=== PATIENT | male | born 1960 | race Caucasian/White ===

== ENCOUNTER 2018-04-03 07:57 | Outpatient (RCR) | payer MEDICAID, SELFPAY ==
--- NOTE | 2018-04-03 15:31 | HP.OTFCE_ITS ---
HP OT Functional Capacity Eval - Task Lift Floor (Occasional 1-33% of Day): 30 lbs Floor (Frequent 34-66% of Day): 15 lbs Floor (Constant 67-100% of Day): negligible Floor PDL: Light Knee (Occasional 1-33% of Day): 30 lbs Knee (Frequent 34-66% of Day): 15 lbs Knee (Constant 67-100% of Day): negligible Knee PDL: Light Waist (Occasional 1-33% of Day): 30 lbs Waist (Frequent 34-66% of Day): 15 lbs Waist (Constant 67-100% of Day): negligible Waist PDL: Light Shoulder (Occasional 1-33% of Day): 25 lbs Shoulder (Frequent 34-66% of Day): 12.5 lbs Shoulder (Constant 67-100% of Day): negligible Shoulder PDL: Light Overhead (Occasional 1-33% of Day): 15 lbs Overhead (Frequent 34-66% of Day): 8 lbs Overhead (Constant 67-100% of Day): negligible Overhead PDL: Sedentary-Light Comments: Due to increased compensations with waist and overhead lifting tasks it would not be reccommended he completes increased lifting tasks. It would be beneficial for Pt. to see pain management doctor at this time. - Work Activity/Posture Bending: Occasional Ability (1-33% of day) Squatting: Occasional Ability (1-33% of day) Kneeling: Occasional Ability (1-33% of day) Reaching out: Frequent Ability (34-66% of day) Reaching up: Frequent Ability (34-66% of day) Sitting: Frequent Ability (34-66% of day) Walking: Frequent Ability (34-66% of day) Standing: Occasional Ability (1-33% of day) - Reference Duration Sedentary Sedentary Light Light Light Medium Medium Medium Heavy Very Heavy Heavy Occasional (0-33% of day) Frequent (34-66% of day) Constant (67-100% of day) 10 # Negligible Negligible 15 # 8 # Negligible 20 # 10# Negli. 35 # 18 # 7 # 50 # 25 # 10 # 75 # 100 # >100 # 38 # 50 # >50 # 15 # 20 # >20 # - Patient Information Height: 15.24 cm Weight:: 230 kg Hand Dominance: R handed - Medical History Medical History Including Restrictions: No medical restrictions given by doctor as per Pt. report. No additional information sent by referring physcian. - Diagnoses Diagnoses: PMHx: OA multiple joints, Gout R big toe, HTN, elbow surgery 2017 arthoscopy. Notes has had RA testing but nothing has come back as positive. Notes orthopedic injuries over the years. - Symptoms Symptoms: Main symptom is pain. Pain thoughout body through back, shoulder, hips , and knees. Notes numbness and tingling in L MF-PF since surgery on elbow. - Pain Pain: Pain 7/10 in back and shoulder. He notes that he has increased pain t/o body. Did not take pain meds prior to coming into session. He is on pain medications. He is on oxydone with acetamin 5-325 mg (generic for percacet) daily. 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 - Behavioral Behavioral: Pt. was a little upset while completing tasks due to discomfort. - ADLS ADLS: Pt. lives in 'h[place] lodge', small cabin in the [facility]. Notes he has not been hunting in 4 years. HE has 2 steps to get into cabin no handrails. Once in cabin it is two stories. Ladder to get upstair but noted has not been able to get upstairs since June. He has clawfoot tube with shower, no grab bars and no seat. No grab bars or DME around toilet. Besides bedroom evertyhing else is on first floor. He is still grocery shopping, cooking, cleaning, and driving. Notes he does a little bit at a time. He has 1x dog he care for as well. Notes he does very little yardwork. - Physical Examination Physical Examination: Pt., jameson Kirby for FCE on this date. He did not take pain medication prior to session. Increased compensations noted t/o session. Pain appears limiting but he is still complete ADls and some IADls e.g. grocery shopping with pacing techniques. He is limited with leisure particpation at this time. Performance places him in sedenary to light work but due to consistent compensations it would not reccommended he complete lifiting tasks of repetitive movements at this time. He may benefi tfrom seeing pain management doctor. ROM: B UE is WFL with visual grimances with movements and BLE WFL with hips to 90 when seated in chair. Strength: Strength: Deltoid: R 4-/5, L 4/5. bicep: R 4-/5, L 4/5. tripod: R 4 -/5, L 4/5. rotator cuff complex: R 4-/5, L 4-/5 increased winces. B LE: Hip flexors: R 4-/5, L 4-/5. quadracep: R 4-/5, L 4-/5. hamstring: R 4-/5, L 4-/5. abductors: R 4-/5, L 4-/5. Adductors: R 4-/5, L 4-/5. plantarflexion: R 4-/5, L 4-/5 Right Process Engineering Manager Strength Average: 38.33 Right Process Engineering Manager Strength Percentile: between 85th and 88th Left Process Engineering Manager Strength Average: 34.00 Left Process Engineering Manager Strength Percentile: above 79th below 82nd Right Lateral Pinch Average: 13.00 Right Lateral Pinch Percentile: below 10th Left Lateral Pinch Average: 10.00 Left Lateral Pinch Percentile: below 10th Right Tripod Pinch Average: 7.33 Right Tripod Pinch Percentile: below 10th Left Tripod Pinch Average: 7.00 Left Tripod Pinch Percentile: below 10th Sensation: Completed monofilament test for results are as follows: R. 2nd: 3.22. 3rd: 3.22. 4th: 2.83. 5th: 283. Thumb: 3.84. L. 2nd: 2.83. 3rd : 2.83. 4th: 4.08. 5th:3.22. thumb: 3.22. Sensation abnormal and Pt. noted numbess and tingling in L hand worse that R. L RF and PF have increased numbness and tingling sesnation. Fine Motor: FMC is intact but decreased. Pt. has previous wrist injury to R wrist resulting in fusion. Completed 9 hole pegboard test R hand 29.75 s ( percentile: about 10th), L hand 25.89 s percentile: above 25th below 50th)). Increased pain symptoms appeared as Pt. was holding breath while compelting task and appeared to having difficulty sustain arm in flexion. He was able to move through ROM with some discomfort prior in session. Balance: Balance is WNL. HE is able to stand on 1x foot with vision as reference for over 5 sec on R leg and L leg. Compensations noted on L leg. - Non Material Handling Activities Bendinx, 10x, standing break, 10x quicker followed by seated break. Completed with good body mechanics. ROM WFL and able to move from standing to bent. Some SOB noted towards end of session. Some grimances noted. Pain 7/10 Squattinx, 10x, seated break some SOB noted, 10 more fast followed by seated break. Completed with fair which progressed to poor body mechanics. Increased forward flexion of trunk with increased throacic flexion causing some decreased spinal alignment. Increased fisting of hands to compensate as well as LE shaking as weakenss noted. As repetitions progressed compensations noted. Pain 8/10. Kneelinx, pain 8/10, declined to do 10 fast as pain 8/10. Seated break post 1st set of 10. Poor body mechanics through increased trunk forward and lateral leaning to move from kneeling to upright position. Increased compensations noted. Increased LE weakness noted and increased SOB. Need for seated break post second set. Reaching out/up: From seated position: Reaching out: 3x, 10x, short break followed by 10x fast. Fair body mechanics. Increased compensations noted. Increased compensations shoulder elevation, trunk extension while in chair, and holding breath. Pain 8/10. Reaching Up: 3x, 10x grimances noted , break, 10x fast, seated break. Grimances noted t/o repetitions. Pain 8/10. Compensations noted t/o completion of overhead reaching tasks of trunk extension, holding breath, and some shaking of muscles to maintain movement. Walkin mins of walking tasks. Some antalgic gait noted. Completed 8.5 laps at designated speed within 15 mins. Each lap 340 feet. Completed total 2890 feet. Standin mins. Kofi was able to complete 15 mins of static standing. Increased pain symptoms toward end of static standing with need fo rseated break prio to leaving Pain 8/10. Sitting: Completed 30-40 mins sitting with weiht shifts as needed. Some discomofrt noted in sitting position. Climbing Stairs: Completed 10 stairs with alternating foot patterns and use 1x handrail. COmpensations for pain noted of holding breath, 2x grimance. Able to complete but appears to be in pain. Pain management would be reccommended at this time. - Dynamic Occasional Lifting Capacity Floor Lift: 30 lbs. Increased throacic flexion decreasing spinal alignment. Compensations for L UE due to elbow surgery and increased weight placement on R UE. Body mechanics fair. Pain 8/10. Increased grimances noted t/o task. Due to increased compensation and decreased spinal alignment it would be reccommend to see further painter interior finish. Knee Lift: 30 lbs. Completed fair body mechanics of increased squatting and forward trunk flexion. Pain 8/10. Waist Lift: 30 lbs. Completed fair body mechanics of increased squatting and forward trunk flexion. Pain 8/10. Shoulder Lift: 25 lbs. Pain 8/10. Increased compensations noted of trunk extension and cervical flexion. He manipualted box R hand only due to increased pain with L elbow. Multiple compensations noted and performance classifies him in light work category. Due to safety concerns it would not be reccommended that he completes that much weight at this time. Overhead Lift: 15 lbs. Poor body mechanics. Increased compensations of trunk extension and cervical flexion. Increased holding of breath, grkimance and use of basically 1x arm of R UE due to favoring L UE. Carryin lbs. Antalgic gait noted. Completed with fair body mechanics. Increased compensations of trunk extension noted. Grimace on occassion t/o task and holding breath at times noted. Comments: Oswestry Disability index (Back) 31/50 indicating 62% of perceieved diasbility.
--- NOTE | 2018-04-03 15:31 | HP.OTFCE.D ---
FCE D/C Summary - Discharge ALTA CARROLL was seen for a one time visit for an FCE on 04/03/18 and is discharged.
--- NOTE | 2018-04-06 09:25 | HP.FCE ---
HP OT Functional Capacity Eval - Task Lift Floor (Occasional 1-33% of Day): 30 lbs Floor (Frequent 34-66% of Day): 15 lbs Floor (Constant 67-100% of Day): negligible Floor PDL: Light Knee (Occasional 1-33% of Day): 30 lbs Knee (Frequent 34-66% of Day): 15 lbs Knee (Constant 67-100% of Day): negligible Knee PDL: Light Waist (Occasional 1-33% of Day): 30 lbs Waist (Frequent 34-66% of Day): 15 lbs Waist (Constant 67-100% of Day): negligible Waist PDL: Light Shoulder (Occasional 1-33% of Day): 25 lbs Shoulder (Frequent 34-66% of Day): 12.5 lbs Shoulder (Constant 67-100% of Day): negligible Shoulder PDL: Light Overhead (Occasional 1-33% of Day): 15 lbs Overhead (Frequent 34-66% of Day): 8 lbs Overhead (Constant 67-100% of Day): negligible Overhead PDL: Sedentary-Light Comments: Due to increased compensations with waist and overhead lifting tasks it would not be recommended he completes increased lifting tasks due to safety concerns. His performance is similar to previous FCE but compensations more severe compared to previous FCE. Pain appears to be reported as worse. It would be beneficial for Pt. to see pain management doctor at this time. He is still able to complete all ADLs and some IADLS. - Work Activity/Posture Bending: Occasional Ability (1-33% of day) Squatting: Occasional Ability (1-33% of day) Kneeling: Occasional Ability (1-33% of day) Reaching out: Frequent Ability (34-66% of day) Reaching up: Frequent Ability (34-66% of day) Sitting: Frequent Ability (34-66% of day) Walking: Frequent Ability (34-66% of day) Standing: Occasional Ability (1-33% of day) - Reference Duration Sedentary Sedentary Light Light Light Medium Medium Medium Heavy Very Heavy Heavy Occasional (0-33% of day) Frequent (34-66% of day) Constant (67-100% of day) 10 # Negligible Negligible 15 # 8 # Negligible 20 # 10# Negli. 35 # 18 # 7 # 50 # 25 # 10 # 75 # 100 # >100 # 38 # 50 # >50 # 15 # 20 # >20 # - Patient Information Height: 15.24 cm Weight:: 230 kg Hand Dominance: R handed - Medical History Medical History Including Restrictions: No medical restrictions given by doctor as per Pt. report. No additional information sent by referring physician. - Diagnoses Diagnoses: PMHx: OA multiple joints, Gout R big toe, HTN, elbow surgery 2017 arthroscopy. Notes has had RA testing, but nothing has come back as positive. Notes orthopedic injuries over the years and seems to have pain perceived in those areas. - Symptoms Symptoms: Main symptom is pain. Pain thoughout body through back, shoulder, hips, and knees. Notes numbness and tingling in L MF-PF since surgery on elbow. Not on pain management program as he was turned away per Pt. report. He reports that he did not take pain meds prior to session. Reports pain at 7/10 priro to start session. Educated to complete all atsks within pain tolerance. If to painful he is to difcontinue task. Pain increased to 8/10 t/o session. - Pain Pain: Pain 7/10 in back and shoulder. He notes that he has increased pain t/o body. Did not take pain meds prior to coming into session. He is on pain medications but reports not taking regularly because make him sick at times. He is on oxycodone acetaminophen 5-325 mg (generic for Percocet) daily. HE has h/o arthritis. He explained he was seeing arthritis specialist but is no longer seeing specialist at this time. Tested for RA but results negative. 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 - Behavioral Behavioral: Pt. was a little upset while completing tasks due to discomfort. - ADLS ADLS: Pt. lives in 'h[place] lodge', small cabin in the [facility]. Notes he has not been hunting in 4 years. HE has 2 steps to get into cabin, no handrails. Once in cabin it is two stories. Ladder to get upstair but noted has not been able to get upstairs since June. He has clawfoot tube with shower, no grab bars and no seat. No grab bars or DME around toilet. Besides bedroom evertyhing else is on first floor. He is still grocery shopping, cooking, cleaning, and driving. Notes he does a little bit at a time. He has 1x dog he care for as well. Notes he does very little yardwork. - Physical Examination Physical Examination: Pt., Kofi, arrived for E on this date. He did not take pain medication prior to session. Increased compensations noted t/o session. Pain appears limiting but he is still able to complete ADls and some IADls e.g. grocery shopping with pacing techniques and canoeing with motorize canoe (no paddling). He is limited with leisure participation as he would like to complete at this time. Performance places him in sedentary to light work but due to consistent compensations it would not recommended or safe he complete lifting tasks of repetitive movements at this time. See below for further performance and description. He appears to may benefit from seeing pain management doctor at this time. ROM: B UE is WFL with visual grimances with movements and BLE WFL with hips to 90 when seated in chair. Pain 7/10 sittign and with movements. Strength: Strength: Deltoid: R 4-/5, L 4/5. bicep: R 4-/5, L 4/5. tripod: R 4-/5, L 4/5. rotator cuff complex: R 4-/5, L 4-/5 increased winces. B LE: Hip flexors: R 4-/5, L 4-/5. quadracep: R 4-/5, L 4-/5. hamstring: R 4-/5, L 4-/5. abductors: R 4-/5, L 4-/5. Adductors: R 4-/5, L 4-/5. plantarflexion: R 4-/5, L 4-/5 Right Architectural Engineering Teacher Strength Average: 38.33 Right Architectural Engineering Teacher Strength Percentile: between 85th and 88th Left Architectural Engineering Teacher Strength Average: 34.00 Left Architectural Engineering Teacher Strength Percentile: above 79th below 82nd Right Lateral Pinch Average: 13.00 Right Lateral Pinch Percentile: below 10th Left Lateral Pinch Average: 10.00 Left Lateral Pinch Percentile: below 10th Right Tripod Pinch Average: 7.33 Right Tripod Pinch Percentile: below 10th Left Tripod Pinch Average: 7.00 Left Tripod Pinch Percentile: below 10th Sensation: Completed monofilament test for results are as follows: R. 2nd: 3.22. 3rd: 3.22. 4th: 2.83. 5th: 283. Thumb: 3.84. L. 2nd: 2.83. 3rd :2.83. 4th: 4.08. 5th:3.22. thumb: 3.22. Sensation abnormal and Pt. noted numbess and tingling in L hand worse that R. L RF and PF have increased numbness and tingling sesnation. Fine Motor: FMC is intact but decreased. Pt. has previous wrist injury to R wrist resulting in fusion. Completed 9 hole pegboard test R hand 29.75 s (percentile: about 10th), L hand 25.89 s (percentile above 25th below 50th). Increased pain symptoms appeared as Pt. was holding breath while completing task and appeared to having difficulty sustain arm in flexion. He was able to move through ROM with some discomfort prior in session. Balance: Balance is WNL. HE is able to stand on 1x foot with vision as reference for over 5 sec on R leg and L leg. Compensations noted on L leg. - Non Material Handling Activities Bendinx, 10x, standing break, 10x quicker followed by seated break. Completed with good body mechanics. ROM WFL and able to move from standing to bent. Some SOB noted towards end of session. Some grimaces noted. Pain 7/10 Squattinx, 10x, seated break some SOB noted, 10 more fast followed by seated break. Completed with fair bidy mechanics which progressed to poor body mechanics. Increased forward flexion of trunk with increased thoracic flexion causing some decreased spinal alignment. Increased fisting of hands to compensate as well as LE shaking as weakness noted t/o LE. As repetitions progressed increased compensations noted. Pain 8/10. Kneelinx, pain 8/10, declined to do 10 fast as pain 8/10. Seated break post 1st set of 10. Poor body mechanics through increased trunk forward and lateral leaning to move from kneeling to upright position. Increased compensations noted. Increased LE weakness noted and increased SOB. Need for seated break post second set. Reaching out/up: From seated position: Reaching out: 3x, 10x, short break followed by 10x fast. Fair body mechanics. Increased compensations noted of trunke xtension while seated, shoulder elevation, and holding breath. Pain 8/10. Reaching Up: 3x, 10x grimances noted , break, 10x fast, seated break. Grimances noted t/o repetitions. Pain 8/10. Compensations noted t/o completion of overhead reaching tasks of trunk extension, holding breath, and some shaking of muscles to maintain movement. Walkin mins of walking tasks. Some antalgic gait noted. Completed 8.5 consistent laps at designated speed within 15 mins. Each lap 340 feet. Completed total 2890 feet. Able to remain standing post walking to prepare for lifting portion of FCE. Standin mins. Kofi was able to complete 15 mins of static standing. Increased pain symptoms toward end of static standing with need fo rseated break prior to leaving Pain 8/10. Sitting: Completed 30-40 mins sitting with weight shifts as needed. Some discomfort noted in sitting position as per Pt. report. Climbing Stairs: Completed 10 stairs with alternating foot patterns and use 1x handrail. Compensations for pain noted of holding breath, 2x grimace. Able to complete but appears to be in pain. Pain management would be recommended at this time. He has 2 steps to enter home. ABle to complete home steps daily. - Dynamic Occasional Lifting Capacity Floor Lift: 30 lbs. Increased thoracic flexion decreasing spinal alignment. Compensations for L UE due to elbow surgery and increased weight placement on R UE. Body mechanics fair. Pain 8/10. Increased grimaces noted t/o task. Due to increased compensation and decreased spinal alignment it would be recommend to see further silk screen painter. Results similar as last FCE but pain is increased. Knee Lift: 30 lbs. Completed fair body mechanics of increased squatting and forward trunk flexion. SPinal maintain fair alignment. Pain 8/10. Performance classifies at light work performance. Waist Lift: 30 lbs. Completed fair body mechanics of increased squatting and forward trunk flexion. Pain 8/10.Performance classifies at light work performance. Due to pain symptoms and increased grimances appears further pain management needed prior to complete previous work. Shoulder Lift: 25 lbs. Pain 8/10. Increased compensations noted of trunk extension and cervical flexion. He manipulated box R hand only due to increased pain with L elbow. Multiple compensations noted, and performance classifies him in light work category. Due to safety concerns it would not be recommended that he completes that much weight at this time. Overhead Lift: 15 lbs. Poor body mechanics. Increased compensations of trunk extension and cervical flexion. Increased holding of breath, grimance and use of basically 1x arm of R UE due to favoring L UE during manipulation. Would not recommned completing as safety concerns. Carryin lbs. Antalgic gait noted. Completed with fair body mechanics. Increased compensations of trunk extension noted. Grimace on occassion t/o task and holding breath at times noted. Comments: Oswestry Disability index (Back) 31/50 indicating 62% of perceived disability. Kofi complete FCE at this clinic last year. Results were similar. On previous FCE he scored between light-medium work performance for floor, knee, and waist tasks and light for shoulder and overhead. Results similar to today's performance but Pt. is rating and appears to be in increased pain. Additionally, compensations noted t/o activities decrease safety as well as body mechanics for tasks. It would be recommended getting further medical testing to determine cause of pain and pain management if pain is as severe as Pt. report.
== END 2018-04-03 19:00 | disposition home or self-care (01) ==
LOC: OT 07:57
PROVIDERS: Family Provider Family Medicine; PCP Family Medicine; Visit Provider Family Medicine
DX: M54.9 Dorsalgia, unspecified (principal)
CPT/HCPCS: 97750

== ENCOUNTER 2024-04-28 15:22 | Emergency (ER) | payer MEDICARE, SELFPAY ==
[2024-04-28 15:24] VITALS: BP 102/48; PULSE 132; RESP 20; TEMP 35.8; O2SAT 93; BMI 31.6
--- NOTE | 2024-04-28 15:50 | RAD_ITS ---
STUDY: XR Shoulder Min 2 Views REASON FOR EXAM: Male, 63 years old. fall TECHNIQUE: XR Shoulder 2 Views LEFT COMPARISON: None. FINDINGS: There is mild degenerative arthrosis of the glenohumeral articulation. There is degenerative arthrosis of the acromioclavicular joint without inferior osseous spur formation. Normal acromion. Normal humeral head and visualized proximal humerus. The soft tissue structures are unremarkable. Normal visualized pulmonary apex. RAD/Shoulder min 2 Views IMPRESSION: There are no acute findings of the shoulder. Electronically Signed: Miguel Tamez MD at 16:19 EDT ,
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
== END 2024-04-28 16:47 | disposition home or self-care (01) ==
PROVIDERS: Emergency Provider Emergency Medicine; PCP Family Medicine; Visit Provider Emergency Medicine
DX: S40.012A Contusion of left shoulder, initial encounter (principal); F41.9 Anxiety disorder, unspecified; I10 Essential (primary) hypertension; Z87.891 Personal history of nicotine dependence; X58.XXXA Exposure to other specified factors, initial encounter; Z79.899 Other long term (current) drug therapy
CPT/HCPCS: 73030; 99282

== ENCOUNTER 2024-09-09 11:02 | Day surgery (SDC) | payer MEDICARE, SELFPAY ==
--- NOTE | 2024-09-03 15:02 | PAT.ANESEVAL ---
Pre-Assessment Diagnosis/Proposed Procedure Planned Operative Procedure(s): LEFT SHOULDER ARTHROSCOPY RTC REPAIR SUBCROMIAL DECOMPRESSION DISTAL CLAVICLE EXCISION AND MINI OPEN BICEPS TENODESIS Anesthesia History Anesthesia History - manager internet: Anesthesia History - manager internet Hx Hospitalization Yes: 07/2024 REACTION TO 09/02/24 12:46 SUPPLEMENT TAKEN AT HOME Any Problems With Anesthesia No 09/02/24 12:46 Cholinesterase deficiency No 09/02/24 12:46 You/Your Family Experience No 09/02/24 12:46 fever (hyperthermia) with Relationship Recent Exposure to Contagious Disease Does patient have nerve No 09/02/24 12:46 stimulator Patient instructed to have device shut off --Does patient have Pacemaker or ICD? When Was Last Pacemaker Check QUESTION #4 FULL TEXT: You/Your Family Experience fever (hyperthermia) with Anesthesia Last Oral Intake Last Oral intake: Last Oral Intake NPO since Meds taken in AM with sips of water? Meds patient instructed to take am of surgery PONV PONV - manager internet: PONV - manager internet Female No 09/02/24 12:46 HX of Motion Sickness No 09/02/24 12:46 HX of N/V After Surgery No 09/02/24 12:46 Non-Smoker Yes 09/02/24 12:46 Duration of Surgery greater Yes 09/02/24 12:46 than 60 minutes Number of Risk Factors 2 09/02/24 12:46 PONV Score Moderate Risk 09/02/24 12:46 Height & Weight Height & Weight: Anesthesia: Height & Weight Height 6 ft 04/28/24 15:24 Respiratory Assessment Respiratory Assessment - manager internet: Respiratory Tract Infection Hx - manager internet Hx Respiratory Tract Infection No 09/02/24 12:46 STOP Sleep Apnea STOP Sleep Apnea - manager internet: STOP Sleep Apnea - manager internet Hx Hypertension Yes: CONTROLLED WITH MEDS 09/02/24 12:46 Hx Sleep Apnea No 09/02/24 12:46 CPAP BIPAP Do you snore loudly (louder No 09/02/24 12:46 than talking or can be heard Do you often feel tired/ No 09/02/24 12:46 fatigued/ sleepy during daytime? Has anyone observed you stop No 09/02/24 12:46 breathing during sleep? STOP Results Negative 09/02/24 12:46 QUESTION #5 FULL TEXT : Do you snore loudly (louder than talking or can be heard through closed doors)? 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 Specify any problems Hx of Preganancy in last 3 N/A 09/02/24 12:46 Months Nurse Filling Out Transfusion DSCHRIBER 09/02/24 12:46 & Questions: Date: 09/02/24 09/02/24 12:46 Time: 12:49 09/02/24 12:46 Patient unable to answer at this time (ie. confused, unrespo /Reproduction History /Reproductive History - manager internet: /Reproductive Hx- manager internet Hx Now No 09/02/24 12:46 Gestational Age (in weeks): EDC: Hx Hx Para Hx Section SAB No 09/02/24 12:46 PFS Medical History (Updated 09/02/24 @ 12:54 by Kendra Sutton) Wears hearing aid Depression Anxiety Alcohol use Gout Arthritis Prostate disease Restless legs Gastric reflux Former smoker History of normal Holter exam Hypertension Home Medications ?Medication ?Instructions ?Recorded ?Last Taken ?Type duloxetine 60 mg capsule,delayed 60 mg PO BID 04/28/24 Unknown History release epinephrine 0.3 mg/0.3 mL 0.3 ml IM UD allergies 04/28/24 Unknown History injection, auto-injector furosemide 20 mg tablet 20 mg PO DAILY 04/28/24 Unknown History lisinopril 20 mg tablet 20 mg PO DAILY 04/28/24 Unknown History meloxicam 15 mg tablet 15 mg PO DAILY 04/28/24 Unknown History omeprazole 20 mg capsule,delayed 20 mg PO DAILY 04/28/24 Unknown History release oxycodone-acetaminophen 5 mg-325 1 tab PO Q6H PRN PRN pain 04/28/24 Unknown History mg tablet tamsulosin 0.4 mg capsule 0.4 mg PO BID 04/28/24 Unknown History allopurinol 100 mg tablet 100 mg PO DAILY 09/02/24 Unknown History amlodipine 5 mg tablet 5 mg PO DAILY 09/02/24 Unknown History cyclobenzaprine 10 mg tablet 10 mg PO TID PRN PRN muscle spasm 09/02/24 Unknown History tadalafil 20 mg tablet 20 mg PO DAILY PRN PRN sexual 09/02/24 Unknown History activity Allergy/AdvReac Type Severity Reaction Status Date / Time bee venom protein (honey Allergy Shortness Verified 09/02/24 12:42 bee) (bee stings) of breath Surgical History (Updated 09/02/24 @ 12:54 by Kendra Sutton) Hx of toe surgery Hx of appendectomy Hx of foot surgery H/O elbow surgery H/O wrist surgery Social History Smoking Status: Former smoker Audit: Pertinent Findings Pertinent Findings EKG Perinent findings: April 14, 2024. Sinus tachycardia at 103 beats per minutes. Minimal ST depression in the anterior lateral leads. Recommendation Anesthesia Recommendation Anesthesia recommendation: OPTIMIZED for anesthesia
[2024-09-09] VITALS (10 sets, daily range): BP systolic 96–129; BP diastolic 74–92; PULSE 100–112; RESP 16–18; TEMP 36.1–36.5; O2SAT 87–94; BMI 31.8
--- NOTE | 2024-09-09 11:56 | PCM.PRE.AN2 ---
ASA Classification* ASA Classification ASA Classification: 3 Assessment & Plan Anesthesia* Anesthesia Assessment Anesthesia Assessment: Discussed sedation and/or anesthesia options, risks, benefits, and alternatives with patient/parents/legal guardian/POA. Questions invited. The patient/parents/legal guardian/POA seems to understand and agrees to proceed with anesthesia plan. Reviewed the physical assessment, medical history, allergy history and patient home medications list prior to surgery/procedure/anesthetic and documented any changes. Performed airway and anesthesia risk assessments. Anesthesia Type Anesthesia Type: General and Block (Patient is consented for interscalene block.) History Source History Obtained from:: Patient and Chart Anesthesia Focused Assessment* Temperature: 97.7 F Pulse Rate: 112 Blood Pressure: 129/90 Respiratory Rate: 16 Pulse Ox: 94 Oxygen Delivery Method: Room Air Airway Assessment Mouth opens: >3 cm Mallampati Score: II Teeth Condition: Chipped/Broken (Patient has a couple chipped teeth.) and Missing (Patient has several missing teeth. Rest of the teeth are tight.) Neck Range of motion (ROM): Limited ROM (Slight decreased extension) Focused Labs Anesthesia Preop lab: CBC WBC 13.5 K/mm3 (4.4-11.0) H 08/13/14 09:08 RBC 4.97 M/mm3 (4.6-6.2) 08/13/14 09:08 Hgb 14.6 g/dl (13.0-16.5) 08/13/14 09:08 Hct 43.6 % (40-54) 08/13/14 09:08 Plt Count 302 K/mm3 (150-450) 08/13/14 09:08 CHEMISTRY Potassium 3.9 mmol/L (3.5-5.1) 08/13/14 09:08 Sodium 138 mmol/L (136-145) 08/13/14 09:08 BUN 20 mg/dL (7-18) H 08/13/14 09:08 Creatinine 1.2 mg/dL (0.8-1.3) 08/13/14 09:08 Glucose 97 mg/dL (70-110) 08/13/14 09:08 COAG Pre-Assessment Diagnosis/Proposed Procedure Planned Operative Procedure(s): LEFT SHOULDER ARTHROSCOPY RTC REPAIR SUBCROMIAL DECOMPRESSION DISTAL CLAVICLE EXCISION AND MINI OPEN BICEPS TENODESIS Anesthesia History Anesthesia History - home health attendant: Anesthesia History - home health attendant Hx Hospitalization Yes: 07/2024 REACTION TO 09/02/24 12:46 SUPPLEMENT TAKEN AT HOME Any Problems With Anesthesia No 09/02/24 12:46 Cholinesterase deficiency No 09/02/24 12:46 You/Your Family Experience No 09/02/24 12:46 fever (hyperthermia) with Relationship Recent Exposure to Contagious No 09/09/24 11:26 Disease Does patient have nerve No 09/02/24 12:46 stimulator Patient instructed to have device shut off --Does patient have Pacemaker No 09/09/24 11:26 or ICD? When Was Last Pacemaker Check QUESTION #4 FULL TEXT: You/Your Family Experience fever (hyperthermia) with Anesthesia Last Oral Intake Last Oral intake: Last Oral Intake NPO since 07:00 09/09/24 11:26 Meds taken in AM with sips of Yes 09/09/24 11:26 water? Meds patient instructed to see mar 09/09/24 11:26 take am of surgery Any additional information?: Yes Meds taken in AM with sips of water?: Yes PONV PONV - home health attendant: PONV - home health attendant Female No 09/02/24 12:46 HX of Motion Sickness No 09/02/24 12:46 HX of N/V After Surgery No 09/02/24 12:46 Non-Smoker Yes 09/02/24 12:46 Duration of Surgery greater Yes 09/02/24 12:46 than 60 minutes Number of Risk Factors 2 09/02/24 12:46 PONV Score Moderate Risk 09/02/24 12:46 Height & Weight Height & Weight: Anesthesia: Height & Weight Height 6 ft 09/09/24 11:26 Weight: 106.594 kg 09/09/24 11:26 Body Mass Index (BMI) 31.8 09/09/24 11:26 Respiratory Assessment Respiratory Assessment - home health attendant: Respiratory Tract Infection Hx - home health attendant Hx Respiratory Tract Infection No 09/02/24 12:46 STOP Sleep Apnea STOP Sleep Apnea - home health attendant: STOP Sleep Apnea - home health attendant Hx Hypertension Yes: CONTROLLED WITH MEDS 09/02/24 12:46 Hx Sleep Apnea No 09/02/24 12:46 CPAP BIPAP Do you snore loudly (louder No 09/02/24 12:46 than talking or can be heard Do you often feel tired/ No 09/02/24 12:46 fatigued/ sleepy during daytime? Has anyone observed you stop No 09/02/24 12:46 breathing during sleep? STOP Results Negative 09/02/24 12:46 QUESTION #5 FULL TEXT : Do you snore loudly (louder than talking or can be heard through closed doors)? 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 Specify any problems Hx of Preganancy in last 3 N/A 09/02/24 12:46 Months Nurse Filling Out Transfusion DSCHRIBER 09/02/24 12:46 & Questions: Date: 09/02/24 09/02/24 12:46 Time: 12:49 09/02/24 12:46 Patient unable to answer at this time (ie. confused, unrespo /Reproduction History /Reproductive History - home health attendant: /Reproductive Hx- home health attendant Hx Now No 09/02/24 12:46 Gestational Age (in weeks): EDC: Hx Hx Para Hx Section SAB No 09/02/24 12:46 Active Medications Active Medications: Current Medications Generic Name Dose Route Start Last Admin Trade Name Freq PRN Reason Stop Dose Admin Cefazolin Sodium 2 gm/ N/A 20 mls @ 400 mls/hr 09/09/24 13:20 IV 09/09/24 13:22 PREOP ONE Sodium Chloride 1,000 mls @ 15 mls/hr 09/09/24 11:15 IV 09/15/24 00:34 .Q48H [facility] Protocol PFSH Medical History Wears hearing aid Depression Anxiety Alcohol use Gout Arthritis Prostate disease Restless legs Gastric reflux Former smoker History of normal Holter exam Hypertension Home Medications ?Medication ?Instructions ?Recorded ?Last Taken ?Type duloxetine 60 mg capsule,delayed 60 mg PO BID 04/28/24 Unknown History release epinephrine 0.3 mg/0.3 mL 0.3 ml IM UD allergies 04/28/24 Unknown History injection, auto-injector furosemide 20 mg tablet 20 mg PO DAILY 04/28/24 Unknown History lisinopril 20 mg tablet 20 mg PO DAILY 04/28/24 09/09/24 History meloxicam 15 mg tablet 15 mg PO DAILY 04/28/24 Unknown History omeprazole 20 mg capsule,delayed 20 mg PO DAILY 04/28/24 Unknown History release oxycodone-acetaminophen 5 mg-325 1 tab PO Q6H PRN PRN pain 04/28/24 09/02/24 History mg tablet tamsulosin 0.4 mg capsule 0.4 mg PO BID 04/28/24 Unknown History allopurinol 100 mg tablet 100 mg PO DAILY 09/02/24 Unknown History amlodipine 5 mg tablet 5 mg PO DAILY 09/02/24 09/09/24 07:00 History cyclobenzaprine 10 mg tablet 10 mg PO TID PRN PRN muscle spasm 09/02/24 Unknown History tadalafil 20 mg tablet 20 mg PO DAILY PRN PRN sexual 09/02/24 Unknown History activity Allergy/AdvReac Type Severity Reaction Status Date / Time bee venom protein (honey Allergy Shortness Verified 09/09/24 11:25 bee) (bee stings) of breath Surgical History Hx of toe surgery Hx of appendectomy Hx of foot surgery H/O elbow surgery H/O wrist surgery Social History Smoking Status: Former smoker Review of Systems (Anesthesia) ROS Narrative System reviewed and no additional complaints, except as documented.
[2024-09-09] MEDS: Cefazolin 2 GM in Syringe IV (13:13)
[2024-09-09] MEDS: Epinephrine (1 mg/ml) 1 MG/ML VIAL (13:14)
[2024-09-09] MEDS: Bupiv/Epi 0.25% 30 ML Vial (15:02)
--- NOTE | 2024-09-09 15:27 | PCM.POST.ANE ---
Anesthesia: Postop Eval I Current Vital Signs Temperature: 97.5 F Pulse Rate: 111 Blood Pressure: 107/79 Respiratory Rate: 16 Pulse Ox: 92 Oxygen Delivery Method: Room Air Assessment Airway patent: Yes Spontaneous unlabored respirations: Yes Mental status: Awake and Calm nausea: No Vomiting: No Anesthesia Complication: No Fluid Hydration Crystalloid volume administer (ml): 800 Total IV fluid infused: 800 Progress Note Anesthesia document: Postop Eval 1 completed: Yes
--- NOTE | 2024-09-09 15:28 | OP.PCM_ITS ---
Operative Report (Standard) Operative Information Date of Procedure: 09/09/24 Pre-Operative Diagnosis: 1. Left shoulder rotator cuff tear 2. Left shoulder subacromial impingement syndrome 3. Left shoulder long head of biceps tendinosis 4. Left shoulder acromioclavicular joint osteoarthritis Post-Operative Diagnosis: 1. Left shoulder rotator cuff tear 2. Left shoulder subacromial impingement syndrome 3. Left shoulder long head of biceps tendinosis 4. Left shoulder acromioclavicular joint osteoarthritis Surgery/Procedure Performed: 1. Left shoulder arthroscopic rotator cuff repair 2. Left shoulder arthroscopic subacromial decompression 3. Left shoulder arthroscopic distal clavicle excision 4. Left shoulder mini open subpectoral biceps tenodesis lockstitch pocket setter: Yes Utility Bill Collection Clerk: Agueda Keating Tasks completed by [employer] assistant manager: Opening & closing, Dissecting tissue, Implanting device and Retracting Additional assistant credit manager?: No Type of Anesthesia: General/Regional RN Documented Start/Stop Times: Operation Date: 09/09/24 13:20 Case Time Into Pre-Op 09/09/24 11:11 Out of Pre-Op 09/09/24 13:13 Into Room 09/09/24 13:14 Anesthesia Start 09/09/24 13:50 Procedure Start 09/09/24 13:50 Procedure End 09/09/24 15:17 Procedure Start Time: 13:50 Procedure Stop Time: 15:17 Select all DRAINS/GRAFTS/IMPLANTS that apply: Implanted device Implanted device details: Arthrex 4.75 mm bio composite self punching swivel lock anchor x 2, Arthrex fiber tack RC anchor x 1, Arthrex metallic biceps button Estimated Blood Loss: 10 cc Specimen collected: No Description of surgery: Patient was greeted in the same-day surgery holding area the day of surgery. He was identified by name, medical record number, and date of . The operative extremity was marked. All questions were answered to the patient's satisfaction. Interscalene block was then administered by anesthesia. At time of his procedure, patient was brought to the operative suite and positioned supine on a standard operating table. General anesthesia was induced and LMA placed. Patient was then positioned in a lateral decubitus position with the left side up. An axillary roll was placed. All bony prominences were well-padded. We prepped and draped the left upper extremity in a normal, sterile orthopedic fashion. We performed a timeout confirming the side, site, and operation to be performed. No concerns were voiced and we elected to proceed with surgery. 2 g Ancef was ministered IV prior to incision by anesthesia staff. Left upper extremity was placed in arthroscopic traction with 15 pounds of traction force applied to the left arm throughout the arthroscopic portion of the case approximately 1 hour. I then established a standard posterior portal 2 fingerbreadths inferior medial to the posterior lateral border of the scapular spine. Blunt tipped trocar was used to puncture the glenohumeral joint and arthroscopic cannula introduced. The joint was filled with normal saline with epinephrine. Arthroscope was then introduced. Diagnostic arthroscopy was commenced. Anterior interval portal was then established in standard fashion. Biceps tendinosis was noted with partial tearing. Upper third subscapularis tearing was noted. Anterior cable insertion of the supraspinatus appeared to have a full-thickness tear. The articular side of the supraspinatus was then debrided the arthroscopic shaver. I debrided the subscapularis tear as well. I debrided the footprint of the subscapularis. Then placed a rigid cannula through the anterior portal. A fiber link suture was then placed through the anterior third of the subscapularis tendon with a scorpion suture passer. Suture was passed through the eyelet of a self punching swivel lock anchor was then placed at the superior margin of the lesser tuberosity. Suture was tensioned appropriately and there was excellent reapproximation of [place] subscapularis tension. Suture was cut flush with the anchor. I then performed a biceps tenotomy at the biceps labral junction with the arthroscopic cautery. The tendon was allowed to retract into the groove. Degenerative labral fraying was then debrided. Glenohumeral cartilage appeared pristine. No loose bodies identified. I then turned my attention to the subacromial space. Blunt tipped trocar was used to introduce the cannula into the subacromial space. Lateral portal was established and flexible cannula placed. Extensive bursitis was noted and debrided with the arthroscopic shaver. Full-thickness tearing was noted at the anterior cable of the supraspinatus. The undersurface of the acromion was skeletonized with cautery and a prominent downsloping spur was noted. This was resected to a type I acromion with the arthroscopic bur. I then proceeded with double row fixation of the small crescent tear of the anterior portion of the supraspinatus. A fiber tack anchor was placed centrally at the articular margin. I used a fiber link suture to first shuttle the knotless mechanism repair suture and a fiber tape through the anterior portion of the tear approximately 1 cm from the tear margin with a scorpion suture passer. This was repeated on the posterior margin passing the shuttling sutures and the other fiber link suture from the fiber tack anchor. Fiber tape was then passed through the eyelet of a swivel lock anchor and our lateral row anchor was placed along the lateral margin the greater tuberosity in standard fashion. I then passed the passing suture through the knotless mechanism achieving a medial [place] with good compression at the medial portion of the footprint. There were no identifiable dogears. There was excellent reapproximation of [place] cuff tissue to its footprint. Sutures were cut flush. I then turned my attention to the AC joint. The anterior and inferior portion of the joint capsule were released with arthroscopic cautery. A millimeters of distal clavicle were then resected with the arthroscopic bur preserving the superior and posterior portion of the joint capsule. The subacromial space was then thoroughly lavaged. Arthroscopic instruments were removed. Portal sites were closed with interrupted [id number] 3-0 nylon suture. The arm was taken out of traction. A 2 cm oblique incision was then made along the inferior border the pectoralis major and the upper third of the humerus. Field block was administered with 10 cc 0.25% bupivacaine with epinephrine. Blunt dissection was carried down to level the fascia. The fascia was opened inferior to the pectoralis major. Short head biceps tendon was retracted medially and the pectoralis major retracted laterally. The long head biceps tendon was then retrieved out of the wound. Intertubercular portion of the tendon was significantly inflamed and partial tearing was noted. A fiber loop suture was used to perform a whipstitch near the musculotendinous junction. The intercalary portion of the tendon was then amputated. I then elevated periosteum from the humerus in the subpectoral region. I drilled through the near cortex only for an onlay tenodesis. Sutures were passed alternating length through a biceps button. Button was then placed through our drill hole and flipped in the intramedullary canal of the humerus. Sutures were tensioned and tied. Wound was copiously irrigated with normal saline solution. Dermis was reapproximated with buried 3-0 Vicryl suture. Skin was finally reapproximated with a subcuticular 4-0 Monocryl and Dermabond. Bulky sterile compression dressing was applied. Patient was placed in an UltraSling. He was repositioned supine, awakened from anesthesia and safely extubated in the operative suite. He was transferred to his gurney and subsequently to PACU in stable condition. He tolerated the procedure well without apparent complication. Need for skilled assistant credit manager: Agueda Keating PA-C was critical to the outcome of the case. During the course of the procedure the physician assistant credit manager played a vital role. Her intimate knowledge of my steps in the procedure aided in safe and expedient completion of the procedure. The PA played a vital role in positioning particularly in obtaining the appropriate positioning. The PA was also vital in the retraction of soft tissues during the exposure and protecting vital structures. The PA was also vital and obtaining tendon reduction and assisting with hardware placement. She also played a vital role in closure and sling application with my direct supervision. Postoperative plan: Discharge home after meeting same-day surgery criteria Oxycodone prescription provided. Tylenol and ibuprofen encouraged. Ice to the left shoulder Aspirin 81 mg twice daily for DVT prophylaxis beginning postoperative day number 1 x 14 days Physical therapy start in 2 weeks Follow-up appointment in 2 weeks at our office for suture removal and wound check Surgical Findings: Upper third subscapularis tear. Anterior cable full-thickness tear of supraspinatus. Downsloping acromial spur. AC joint arthritis. Partial biceps tearing and tendinosis. Complications Complications: No Admit VTE Documentation VTE Present on Admission: No VTE Mechan Device Prophylaxis: SCD's VTE Pharm Prophylaxis ordered?: Yes
--- NOTE | 2024-09-09 15:29 | POSTOPAN2_ITS ---
Anesthesia Postop Eval I Sum Postop Eval Completion status Anesthesia document: Postop Eval 1 completed: Yes Anesthesia Postop Eval I Summary Anesthesia Postop Eval I Summary: Anesthesia Postop Eval I: Assessment Summary Airway patent Yes 09/09/24 15:29 ROUTING EQUIPMENT TENDER.MDOT Spontaneous unlabored Yes 09/09/24 15:29 ROUTING EQUIPMENT TENDER.MDOT respirations Mental status Awake,Calm 09/09/24 15:29 ROUTING EQUIPMENT TENDER.MDOT nausea No 09/09/24 15:29 ROUTING EQUIPMENT TENDER.MDOT Vomiting No 09/09/24 15:29 ROUTING EQUIPMENT TENDER.MDOT Anesthesia Postop Eval I: Fluid Summary Crystalloid volume administer 800 09/09/24 15:29 ROUTING EQUIPMENT TENDER.MDOT (ml) Colloids volume administered ( ml) Blood Product volume administered (ml) Total IV fluid infused 800 09/09/24 15:29 ROUTING EQUIPMENT TENDER.MDOT Anesthesia Postop Eval I: Summary Notes Anesthesia Complication No 09/09/24 15:29 ROUTING EQUIPMENT TENDER.MDOT Anesthesia Complication Comment: Post-operative progress note Anesthesia: Postop Eval II Evaluation Mental status: Awake and Calm Pain Level: 0 nausea: No Vomiting: No Complications Anesthesia Complication: No
--- NOTE | 2024-09-09 15:29 | PCM.POSTANE2 ---
Anesthesia Postop Eval I Sum Postop Eval Completion status Anesthesia document: Postop Eval 1 completed: Yes Anesthesia Postop Eval I Summary Anesthesia Postop Eval I Summary: Anesthesia Postop Eval I: Assessment Summary Airway patent Yes 09/09/24 15:29 SHIP MATE.MDOT Spontaneous unlabored Yes 09/09/24 15:29 SHIP MATE.MDOT respirations Mental status Awake,Calm 09/09/24 15:29 SHIP MATE.MDOT nausea No 09/09/24 15:29 SHIP MATE.MDOT Vomiting No 09/09/24 15:29 SHIP MATE.MDOT Anesthesia Postop Eval I: Fluid Summary Crystalloid volume administer 800 09/09/24 15:29 SHIP MATE.MDOT (ml) Colloids volume administered ( ml) Blood Product volume administered (ml) Total IV fluid infused 800 09/09/24 15:29 SHIP MATE.MDOT Anesthesia Postop Eval I: Summary Notes Anesthesia Complication No 09/09/24 15:29 SHIP MATE.MDOT Anesthesia Complication Comment: Post-operative progress note Anesthesia: Postop Eval II Evaluation Mental status: Awake and Calm Pain Level: 0 nausea: No Vomiting: No Complications Anesthesia Complication: No
== END 2024-09-09 16:23 | disposition home or self-care (01) ==
LOC: SDC 11:07 → AC 11:07
PROVIDERS: PCP Family Medicine; Referring Provider Student in an Organized Health Care Education/Training Program; Visit Provider Student in an Organized Health Care Education/Training Program
PROC: (CPT 29827; principal; 2024-09-09 13:00)
DX: S46.012A Strain of muscle(s) and tendon(s) of the rotator cuff of left shoulder, initial encounter (principal); M19.012 Primary osteoarthritis, left shoulder; M75.42 Impingement syndrome of left shoulder; Y08.89XA Assault by other specified means, initial encounter; G89.29 Other chronic pain; I10 Essential (primary) hypertension; M10.9 Gout, unspecified; K21.9 Gastro-esophageal reflux disease without esophagitis; F32.A Depression, unspecified; F41.9 Anxiety disorder, unspecified; F17.210 Nicotine dependence, cigarettes, uncomplicated; Z79.899 Other long term (current) drug therapy
CPT/HCPCS: 29827; 29824; 29826; 23430; 01630; 64415; J2405

== ENCOUNTER 2024-12-12 06:57 | Day surgery (SDC) | payer MEDICARE, SELFPAY ==
[2024-11-29 13:28] LABS: Absolute Lymphocyte Count 1.76 X10^3/uL (0.83-4.51); Absolute Neutrophil Count 4.2 X10^3/uL (2.0-7.7); Basophil# 0.11 X10^3/uL; Basophil% 1.6 % (0-1); Eosinophil# 0.11 X10^3/uL; Eosinophils% 1.6 % (0-5); Hematocrit 41.9 % (40-54); Hemoglobin 14.3 g/dL (13.0-16.5); Lymphocyte # 1.76 X10^3/ul (0.83-4.51); Lymphocyte % 25.9 % (19-41); Mean Corp Hgb Conc 34.1 g/dL (32-36); Mean Corpuscular Hgb 29.1 pg (27.0-32.0); Mean Corpuscular Volume 85.2 fL (80-94); Mean Platelet Vol. 9.5 fl (6.2-12.0); Monocyte# 0.55 X10^3/uL; Monocyte% 8.1 % (0-10); NRBC Flagged by Analyzer 0 % (0-5); Neutrophil # 4.24 X10^3/uL (2.7-7.7); Neutrophil % 62.5 % (47-70); Platelet Count 284 K/mm3 (150-450); RBC Distribution Width CV 13.6 % (11.6-14.6); RBC Distribution Width SD 42.5 fl (35.1-43.9); Red Blood Count 4.92 M/mm3 (4.6-6.2); White Blood Count 6.8 K/mm3 (4.4-11.0)
[2024-11-29 14:22] LABS: Anion Gap 12 (5-15); BUN 14 mg/dL (4-19); BUN/Creat Ratio 14.7 RATIO (10-20); Calcium,Total 9.3 mg/dL (7.6-11.0); Carbon Dioxide 22.6 mmol/L (21.0-32.0); Chloride 100 mmol/L (98-108); Creatinine, Serum 0.94 mg/dL (0.70-1.20); EST Glomerular Filtration Rate 92 (>60); Glucose 142 mg/dL (70-99); Potassium 3.9 mmol/L (3.3-5.1); Sodium Level 134 mmol/L (133-145)
--- NOTE | 2024-12-02 15:10 | PAT.ANE_ITS ---
Pre-Assessment Diagnosis/Proposed Procedure Planned Operative Procedure(s): Right shoulder arthroscopy with rotator cuff repair, subacromial decompression, distal clavicle excision and mini open biceps tenodesis. 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 When Was Last Pacemaker Check QUESTION #4 FULL TEXT: You/Your Family Experience fever (hyperthermia) with Anesthesia Last Oral Intake Last Oral intake: Last Oral Intake NPO since Meds taken in AM with sips of water? Meds patient instructed to take am of surgery PONV PONV - calculator operator: PONV - calculator operator Female No 12/02/24 08:25 HX of Motion Sickness No 12/02/24 08:25 HX of N/V After Surgery No 12/02/24 08:25 Non-Smoker Yes 12/02/24 08:25 Duration of Surgery greater Yes 12/02/24 08:25 than 60 minutes Number of Risk Factors 2 12/02/24 08:25 PONV Score Moderate Risk 12/02/24 08:25 Height & Weight Height & Weight: Anesthesia: Height & Weight Height 6 ft 09/09/24 11:26 Respiratory Assessment Respiratory Assessment - calculator operator: Respiratory Tract Infection Hx - calculator operator Hx Respiratory Tract Infection No 12/02/24 08:25 STOP Sleep Apnea STOP Sleep Apnea - calculator operator: STOP Sleep Apnea - calculator operator Hx Hypertension Yes: CONTROLLED WITH MEDS 12/02/24 08:25 Hx Sleep Apnea No 12/02/24 08:25 CPAP BIPAP Do you snore loudly (louder Yes 12/02/24 08:25 than talking or can be heard Do you often feel tired/ No 12/02/24 08:25 fatigued/ sleepy during daytime? Has anyone observed you stop No 12/02/24 08:25 breathing during sleep? STOP Results Positive 12/02/24 08:25 QUESTION #5 FULL TEXT : Do you snore loudly (louder than talking or can be heard through closed doors)? 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 Specify any problems Hx of Preganancy in last 3 N/A 12/02/24 08:25 Months Nurse Filling Out Transfusion DSCHRIBER 12/02/24 08:25 & Questions: Date: 12/02/24 12/02/24 08:25 Time: 08:27 12/02/24 08:25 Patient unable to answer at this time (ie. confused, unrespo /Reproduction History /Reproductive History - calculator operator: /Reproductive Hx- calculator operator Hx Now No 12/02/24 08:25 Gestational Age (in weeks): EDC: Hx Hx Para Hx Section SAB No 12/02/24 08:25 PFS Medical History (Updated 12/02/24 @ 08:35 by Kendra Sutton) Wears hearing aid Depression Anxiety Alcohol use Gout Arthritis Prostate disease Restless legs Gastric reflux Former smoker History of normal Holter exam Hypertension Home Medications ?Medication ?Instructions ?Recorded ?Last Taken ?Type duloxetine 60 mg capsule,delayed 60 mg PO BID 04/28/24 Unknown History release epinephrine 0.3 mg/0.3 mL 0.3 ml IM UD allergies 04/28 Unknown History injection, auto-injector furosemide 20 mg tablet 20 mg PO DAILY 04/28/24 Unkn own History lisinopril 20 mg tablet 20 mg PO DAILY 04/28/2408/13 History meloxicam 15 mg tablet 15 mg PO DAILY 04/28/24 Unkn own History omeprazole 20 mg capsule,delayed 20 mg PO DAILY Unknown History release oxycodone-acetaminophen 5 mg-325 1 tab PO Q6H PRN PRN pain 04/28/24 09/02/24 History mg tablet tamsulosin 0.4 mg capsule 0.8 mg PO DAILY 04/28/24 Unk nown History allopurinol 100 mg tablet 100 mg PO DAILY 09/02/24 Unk nown History amlodipine 5 mg tablet 5 mg PO DAILY 09/02/2409/09 07:00 History cyclobenzaprine 10 mg tablet 10 mg PO TID PRN PRN musc le spasm 09/02/24 Unknown History tadalafil 20 mg tablet 20 mg PO DAILY PRN PRN sexua l 09/02/24 Unknown History activity Allergy/AdvReac Type Severity Reaction Status Date / Time bee venom protein (honey Allergy Shortness Verified 12/02/24 08:21 bee) (bee stings) of breath Surgical History (Updated 12/02/24 @ 08:35 by Kendra Sutton) History of shoulder surgery Hx of toe surgery Hx of appendectomy Hx of foot surgery H/O elbow surgery H/O wrist surgery Social History Smoking Status: Former smoker Audit: Pertinent Findings Pertinent Findings EKG Perinent findings: July 28, 2024. Sinus tachycardia at 114 bpm. Abnormal R wave progression, early transition. Compared to April 24, 2024, heart rate has decreased by 19 bpm. Recommendation Anesthesia Recommendation Anesthesia recommendation: OPTIMIZED for anesthesia
[2024-12-12] VITALS (11 sets, daily range): BP systolic 90–133; BP diastolic 62–97; PULSE 84–108; RESP 16–20; TEMP 36.1–36.5; O2SAT 87–96; BMI 33.7
[2024-12-12] MEDS: 0.9% Normal Saline (1000mL) 1,000 ML 15 ML IV (07:42)
--- NOTE | 2024-12-12 07:58 | PRE.ANES_ITS ---
ASA Classification* ASA Classification ASA Classification: 2 Assessment & Plan Anesthesia* Anesthesia Assessment Anesthesia Assessment: Discussed sedation and/or anesthesia options, risks, benefits, and alternatives with patient/parents/legal guardian/POA. Questions invited. The patient/parents/legal guardian/POA seems to understand and agrees to proceed with anesthesia plan. Reviewed the physical assessment, medical history, allergy history and patient home medications list prior to surgery/procedure/anesthetic and documented any changes. Performed airway and anesthesia risk assessments. Anesthesia Type Anesthesia Type: General and Block (Interscalene) History Source History Obtained from:: Patient and Chart Anesthesia Focused Assessment* Temperature: 97.7 F Pulse Rate: 108 Blood Pressure: 133/97 Respiratory Rate: 18 Pulse Ox: 96 Oxygen Delivery Method: Room Air Airway Assessment Mouth opens: >3 cm Mallampati Score: II Teeth Condition: Chipped/Broken Neck Range of motion (ROM): Full ROM Comment: Multiple teeth missing or chipped Focused Labs Anesthesia Preop lab: CBC WBC 6.8 K/mm3 (4.4-11.0) 11/29/24 13:14 11/29/24 RBC 4.92 M/mm3 (4.6-6.2) 11/29/24 13:14 11/29/24 Hgb 14.3 g/dL (13.0-16.5) 11/29/24 13:14 11/29/24 Hct 41.9 % (40-54) 11/29/24 13:14 11/29/24 Plt Count 284 K/mm3 (150-450) 11/29/24 13:14 11/29/24 CHEMISTRY Potassium 3.9 mmol/L (3.3-5.1) 11/29/24 13:14 11/29/24 Sodium 134 mmol/L (133-145) 11/29/24 13:14 11/29/24 BUN 14 mg/dL (4-19) 11/29/24 13:14 11/29/24 Creatinine 0.94 mg/dL (0.70-1.20) 11/29/24 13:14 11/29/24 Glucose 142 mg/dL (70-99) H 11/29/24 13:14 11/29/24 COAG Pre-Assessment Diagnosis/Proposed Procedure Planned Operative Procedure(s): Right shoulder arthroscopy with rotator cuff repair, subacromial decompression, distal clavicle excision and mini open biceps tenodesis. 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 When Was Last Pacemaker Check QUESTION #4 FULL TEXT: You/Your Family Experience fever (hyperthermia) with Anesthesia Last Oral Intake Last Oral intake: Last Oral Intake NPO since 05:45 12/12/24 07:30 Meds taken in AM with sips of Yes 12/12/24 07:30 water? 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 Female No 12/02/24 08:25 HX of Motion Sickness No 12/02/24 08:25 HX of N/V After Surgery No 12/02/24 08:25 Non-Smoker Yes 12/02/24 08:25 Duration of Surgery greater Yes 12/02/24 08:25 than 60 minutes Number of Risk Factors 2 12/02/24 08:25 PONV Score Moderate Risk 12/02/24 08:25 Height & Weight Height & Weight: Anesthesia: Height & Weight Height 6 ft 12/12/24 07:30 Weight: 113 kg 12/12/24 07:30 Body Mass Index (BMI) 33.7 12/12/24 07:30 Respiratory Assessment Respiratory Assessment - fiber drier operator: Respiratory Tract Infection Hx - fiber drier operator Hx Respiratory Tract Infection No 12/02/24 08:25 STOP Sleep Apnea STOP Sleep Apnea - fiber drier operator: STOP Sleep Apnea - fiber drier operator Hx Hypertension Yes: CONTROLLED WITH MEDS 12/02/24 08:25 Hx Sleep Apnea No 12/02/24 08:25 CPAP BIPAP Do you snore loudly (louder Yes 12/02/24 08:25 than talking or can be heard Do you often feel tired/ No 12/02/24 08:25 fatigued/ sleepy during daytime? Has anyone observed you stop No 12/02/24 08:25 breathing during sleep? STOP Results Positive 12/02/24 08:25 QUESTION #5 FULL TEXT : Do you snore loudly (louder than talking or can be heard through closed doors)? 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 Specify any problems Hx of Preganancy in last 3 N/A 12/02/24 08:25 Months Nurse Filling Out Transfusion DSCHRIBER 12/02/24 08:25 & Questions: Date: 12/02/24 12/02/24 08:25 Time: 08:27 12/02/24 08:25 Patient unable to answer at this time (ie. confused, unrespo /Reproduction History /Reproductive History - fiber drier operator: /Reproductive Hx- fiber drier operator Hx Now No 12/02/24 08:25 Gestational Age (in weeks): EDC: Hx Hx Para Hx Section SAB No 12/02/24 08:25 Active Medications Active Medications: Current Medications Generic Name Dose Route Start Last Admin Trade Name Freq PRN Reason Stop Dose Admin Cefazolin Sodium 2 gm/ N/A 20 mls @ 400 mls/hr 12/12/24 09:20 IV 12/12/24 09:22 X1 ONE Sodium Chloride 1,000 mls @ 15 mls/hr 12/12/24 07:15 12/12/24 07:42 IV 15 mls/hr .Q48H LUKAS Administration PFSH Medical History Wears hearing aid Depression Anxiety Alcohol use Gout Arthritis Prostate disease Restless legs Gastric reflux Former smoker History of normal Holter exam Hypertension Home Medications ?Medication ?Instructions ?Recorded ?Last Taken ?Type duloxetine 60 mg capsule,delayed 60 mg PO BID 04/28/24 12/12/24 05:45 History release epinephrine 0.3 mg/0.3 mL 0.3 ml IM UD allergies 04/28 Unknown History injection, auto-injector furosemide 20 mg tablet 20 mg PO DAILY 04/28/24 Unkn own History lisinopril 20 mg tablet 20 mg PO DAILY 04/28/2408/13 History meloxicam 15 mg tablet 15 mg PO DAILY 04/28/24 Unkn own History omeprazole 20 mg capsule,delayed 20 mg PO DAILY 12/12/24 05:45 History release oxycodone-acetaminophen 5 mg-325 1 tab PO Q6H PRN PRN pain 04/28/24 09/02/24 History mg tablet tamsulosin 0.4 mg capsule 0.8 mg PO DAILY 04/28/2412/03 05:45 History allopurinol 100 mg tablet 100 mg PO DAILY 09/02/24 Unk nown History amlodipine 5 mg tablet 5 mg PO DAILY 09/02/2412/12 05:45 History cyclobenzaprine 10 mg tablet 10 mg PO TID PRN PRN musc le spasm 09/02/24 Unknown History tadalafil 20 mg tablet 20 mg PO DAILY PRN PRN sexua l 09/02/24 Unknown History activity Allergy/AdvReac Type Severity Reaction Status Date / Time bee venom protein (honey Allergy Shortness Verified 12/12/24 07:34 bee) (bee stings) of breath Surgical History History of shoulder surgery Hx of toe surgery Hx of appendectomy Hx of foot surgery H/O elbow surgery H/O wrist surgery Social History Smoking Status: Former smoker Review of Systems (Anesthesia) ROS Narrative System reviewed and no additional complaints, except as documented.
[2024-12-12] MEDS: Cefazolin 2 GM in Syringe IV (09:35)
[2024-12-12] MEDS: Epinephrine (1 mg/ml) 1 MG/ML VIAL (10:16)
[2024-12-12] MEDS: Bupiv/Epi 0.25% 30 ML Vial (10:55)
--- NOTE | 2024-12-12 11:43 | PCM.POST.ANE ---
Anesthesia: Postop Eval I Current Vital Signs Temperature: 97 F Pulse Rate: 98 Blood Pressure: 90/62 Respiratory Rate: 20 Pulse Ox: 95 Oxygen Delivery Method: Room Air Assessment Airway patent: Yes Spontaneous unlabored respirations: Yes Mental status: Awake nausea: No Vomiting: No Anesthesia Complication: No Fluid Hydration Crystalloid volume administer (ml): 1,750 Total IV fluid infused: 1,750 Progress Note Anesthesia document: Postop Eval 1 completed: Yes
--- NOTE | 2024-12-12 13:56 | POSTOPAN2_ITS ---
Anesthesia Postop Eval I Sum Postop Eval Completion status Anesthesia document: Postop Eval 1 completed: Yes Anesthesia Postop Eval I Summary Anesthesia Postop Eval I Summary: Anesthesia Postop Eval I: Assessment Summary Airway patent Yes 12/12/24 11:44 RIP MACHINE OPERATOR.[email or web address] Spontaneous unlabored Yes 12/12/24 11:44 RIP MACHINE OPERATOR.LMIL respirations Mental status Awake 12/12/24 11:44 RIP MACHINE OPERATOR.LMIL nausea No 12/12/24 11:44 RIP MACHINE OPERATOR.LMIL Vomiting No 12/12/24 11:44 RIP MACHINE OPERATOR.LMIL Anesthesia Postop Eval I: Fluid Summary Crystalloid volume administer 1,750 12/12/24 11:44 RIP MACHINE OPERATOR.LMIL (ml) Colloids volume administered ( ml) Blood Product volume administered (ml) Total IV fluid infused 1,750 12/12/24 11:44 RIP MACHINE OPERATOR.LMIL Anesthesia Postop Eval I: Summary Notes Anesthesia Complication No 12/12/24 11:44 RIP MACHINE OPERATOR.LMIL Anesthesia Complication Comment: Post-operative progress note Anesthesia: Postop Eval II Evaluation Mental status: Awake and Calm Pain Level: 0 nausea: No Vomiting: No Complications Anesthesia Complication: No
--- NOTE | 2024-12-12 13:56 | PCM.POSTANE2 ---
Anesthesia Postop Eval I Sum Postop Eval Completion status Anesthesia document: Postop Eval 1 completed: Yes Anesthesia Postop Eval I Summary Anesthesia Postop Eval I Summary: Anesthesia Postop Eval I: Assessment Summary Airway patent Yes 12/12/24 11:44 CARE TRANSITION MANAGER.[email or web address] Spontaneous unlabored Yes 12/12/24 11:44 CARE TRANSITION MANAGER.LMIL respirations Mental status Awake 12/12/24 11:44 CARE TRANSITION MANAGER.LMIL nausea No 12/12/24 11:44 CARE TRANSITION MANAGER.LMIL Vomiting No 12/12/24 11:44 CARE TRANSITION MANAGER.LMIL Anesthesia Postop Eval I: Fluid Summary Crystalloid volume administer 1,750 12/12/24 11:44 CARE TRANSITION MANAGER.LMIL (ml) Colloids volume administered ( ml) Blood Product volume administered (ml) Total IV fluid infused 1,750 12/12/24 11:44 CARE TRANSITION MANAGER.LMIL Anesthesia Postop Eval I: Summary Notes Anesthesia Complication No 12/12/24 11:44 CARE TRANSITION MANAGER.LMIL Anesthesia Complication Comment: Post-operative progress note Anesthesia: Postop Eval II Evaluation Mental status: Awake and Calm Pain Level: 0 nausea: No Vomiting: No Complications Anesthesia Complication: No
--- NOTE | 2024-12-12 15:30 | OP.PCM_ITS ---
Operative Report (Standard) Operative Information Date of Procedure: 12/12/24 Pre-Operative Diagnosis: 1. Right shoulder rotator cuff tear 2. Right shoulder subacromial impingement syndrome 3. Right shoulder biceps tendinitis 4. Right shoulder acromioclavicular joint osteoarthritis Post-Operative Diagnosis: 1. Right shoulder rotator cuff tear 2. Right shoulder subacromial impingement syndrome 3. Right shoulder SLAP tear 4. Right shoulder acromioclavicular joint osteoarthritis Surgery/Procedure Performed: 1. Right shoulder arthroscopic rotator cuff repair 2. Right shoulder arthroscopic subacromial decompression 3. Right shoulder arthroscopic distal clavicle excision 4. Mini open right shoulder subpector biceps tenodesis trimmer operator three knife: Yes Spanish Interpreter/Translator: Agueda Keating Tasks completed by assistant attorney general: Opening & closing, Implanting device, Hemostasis: Electrocautery and Retracting Additional store administrative assistant?: No Type of Anesthesia: General/Regional RN Documented Start/Stop Times: Operation Date: 12/12/24 09:20 Case Time Into Pre-Op 12/12/24 07:05 Anesthesia Start 12/12/24 09:20 Into Room 12/12/24 09:20 Procedure Start 12/12/24 09:56 Procedure End 12/12/24 11:08 Anesthesia End 12/12/24 11:21 Out of Room 12/12/24 11:21 Into Recovery 12/12/24 11:25 Out of Recovery 12/12/24 12:12 Into Phase II Recovery 12/12/24 12:13 Out of Phase II 12/12/24 13:07 Procedure Start Time: 09:56 Procedure Stop Time: 11:08 Select all DRAINS/GRAFTS/IMPLANTS that apply: Implanted device Implanted device details: Ar[employer] FiberTak anchor x 2, biocomposite 4.75 mm SwivelLock Whiting x 2, Metallic biceps button x 1 Estimated Blood Loss: 10 cc Specimen collected: No Description of surgery: Patient was greeted in the same-day surgery holding area the day of surgery. He was identified by name, medical record number, and date of . The operative extremity was marked. All questions were answered to the patient's satisfa ction. Interscalene block was then administered by anesthesia. At time of his procedure, patient was brought to the operative suite and positioned supine on a standard operating table. General anesthesia was induced and LMA placed. Patient was then positioned in a lateral decubitus position with the right side up. An axillary roll was placed. All bony prominences were well-padded. We prepped and draped the right upper extremity in a normal, sterile orthopedic fashion. We performed a timeout confirming the side, site, and operation to be performed. No concerns were voiced and we elected to proceed with surgery. 2 g Ancef was ministered IV prior to incision by anesthesia staff. Right upper extremity was placed in arthroscopic traction with 15 pounds of traction force applied to the right arm throughout the arthroscopic portion of the case approximately 45 minutes. I then established a standard posterior portal 2 fingerbreadths inferior medial to the posterior lateral border of the scapular spine. Blunt tipped trocar was used to puncture the glenohumeral joint and arthroscopic cannula introduced. The joint was filled with normal saline with epinephrine. Arthroscope was then introduced. Diagnostic arthroscopy was commenced. Anterior interval portal was then established in standard fashion. SLAP II tear noted. Upper third subscapularis fraying was noted. Supraspinatur demonstrated a full-thickness tear. The articular side of the supraspinatus was then debrided the arthroscopic shaver. I debrided the subscapularis tear as well. I then performed a biceps tenotomy at the biceps labral junction with the arthroscopic cautery. The tendon was allowed to retract into the groove. Labral tearing was then debrided. Glenohumeral cartilage appeared pristine. No loose bodies identified. I then turned my attention to the subacromial space. Blunt tipped trocar was used to introduce the cannula into the subacromial space. Lateral portal was established and flexible cannula placed. Extensive bursitis was noted and debrided with the arthroscopic shaver. Full-thickness tearing was noted of supraspinatus. [place] tear. The undersurface of the acromion was skeletonized with cautery and a prominent downsloping spur was noted. This was resected to a type I acromion with the arthroscopic bur. I then proceeded with double row fixation of the crescent tear of the supraspinatus. 2 fiber tack anchors were placed at the articular margin. I used [facility] suture passer to pass fiber tape through supraspinatus tendon 1 cm from the tear margin. A suture limb from each anchor was then passed into lateral row anchors. Anchors were placed in standard fashion in the lateral tuberosity. There were no identifiable dogears. There was excellent reapproximation of [place] cuff tissue to its footprint. Sutures were cut flush. I then turned my attention to the AC joint. The anterior and inferior portion of the joint capsule were released with arthroscopic cautery. A millimeters of distal clavicle were then resected with the arthroscopic bur preserving the superior and posterior portion of the joint capsule. The subacromial space was then thoroughly lavaged. Arthroscopic instruments were removed. Portal sites were closed with interrupted [id number] 3-0 nylon suture. The arm was taken out of traction. A 2 cm oblique incision was then made along the inferior border the pectoralis major and the upper third of the humerus. Field block was administered with 10 cc 0.25% bupivacaine with epinephrine. Blunt dissection was carried down to level the fascia. The fascia was opened inferior to the pectoralis major. Short head biceps tendon was retracted medially and the pectoralis major retracted laterally. The long head biceps tendon was then retrieved out of the wound. Intertubercular portion of the tendon was significantly inflamed and partial tearing was noted. A fiber loop suture was used to perform a whipstitch near the musculotendinous junction. The intercalary portion of the tendon was then amputated. I then elevated periosteum from the humerus in the subpectoral region. I drilled through the near cortex only for an onlay tenodesis. Sutures were passed alternating length through a biceps button. Button was then placed through our drill hole and flipped in the intramedullary canal of the humerus. Sutures were tensioned and tied. Wound was copiously irrigated with normal saline solution. Dermis was reapproximated with buried 3-0 Vicryl suture. Skin was finally reapproximated with a subcuticular 4-0 Monocryl and Dermabond. Bulky sterile compression dressing was applied. Patient was placed in an UltraSling. He was repositioned supine, awakened from anesthesia and safely extubated in the operative suite. He was transferred to his gurney and subsequently to PACU in stable condition. He tolerated the procedure well without apparent complication. Need for skilled store administrative assistant: Agueda Keating PA-C was critical to the outcome of the case. During the course of the procedure the physician store administrative assistant played a vital role. Her intimate knowledge of my steps in the procedure aided in safe and expedient completion of the procedure. The PA played a vital role in positioning particularly in obtaining the appropriate positioning. The PA was also vital in the retraction of soft tissues during the exposure and protecting vital structures. The PA was also vital and obtaining tendon reduction and assisting with hardware placement. She also played a vital role in closure and sling application with my direct supervision. Postoperative plan: Discharge home after meeting same-day surgery criteria Oxycodone prescription provided. Tylenol and ibuprofen encouraged. Ice to the right shoulder Aspirin 81 mg twice daily for DVT prophylaxis beginning postoperative day number 1 x 14 days Physical therapy start in 2 weeks Follow-up appointment in 2 weeks at our office for suture removal and wound chec k Surgical Findings: Full thickness supraspinatus tear, SLAP tear Complications Complications: No Admit VTE Documentation VTE Present on Admission: No VTE Mechan Device Prophylaxis: SCD's VTE Pharm Prophylaxis ordered?: Yes
== END 2024-12-12 13:08 | disposition home or self-care (01) ==
LOC: SDC 06:58 → AC 07:03
PROVIDERS: PCP Family Medicine; Referring Provider Student in an Organized Health Care Education/Training Program; Visit Provider Student in an Organized Health Care Education/Training Program
PROC: (CPT 29827; principal; 2024-12-12 09:00)
DX: M75.101 Unspecified rotator cuff tear or rupture of right shoulder, not specified as traumatic (principal); S43.431A Superior glenoid labrum lesion of right shoulder, initial encounter; M19.011 Primary osteoarthritis, right shoulder; M75.41 Impingement syndrome of right shoulder; M75.21 Bicipital tendinitis, right shoulder; X58.XXXA Exposure to other specified factors, initial encounter; G89.29 Other chronic pain; I10 Essential (primary) hypertension; M10.9 Gout, unspecified; G47.00 Insomnia, unspecified; K21.9 Gastro-esophageal reflux disease without esophagitis; F32.A Depression, unspecified; F41.9 Anxiety disorder, unspecified; Z79.899 Other long term (current) drug therapy; Z87.891 Personal history of nicotine dependence
CPT/HCPCS: 29827; 29824; 29826; 23430; 01630; 64415; 36415; 80048; 85025; C1713; J2405